=== PATIENT | female | born 1945 | race Hispanic/Latino ===

== ENCOUNTER 2016-04-25 09:13 | Outpatient (CLI) | payer MEDICARE ==
[2016-04-25 10:21] LABS: ALT (SGPT) 26 U/L (0-55); AST (SGOT) 26 U/L (5-34); Alkaline Phosphatase 117 U/L (40-150); Anion Gap 10 mmol/L (10-20); BUN (Urea Nitrogen) 13 mg/dL (9.8-20.1); Bilirubin, Total 0.6 mg/dL (0.2-1.2); Calc. Creatinine Clearance 0 mL/min (70-130); Calcium 9.6 mg/dL (7.8-10.44); Carbon Dioxide 27 mmol/L (23-31); Chloride 110 mmol/L (98-107); Estimated GFR-MDRD 66; Globulin 2.5 g/dL (2.4-3.5); LDL Cholesterol, Calculated 37 mg/dL
[2016-04-25 11:03] LABS: Hemoglobin A1c 7.5 % (4.0-6.0)
== END 2016-04-25 09:14 | disposition home or self-care (01) ==
LOC: BURLAB 09:13
PROVIDERS: ATTEND Internal Medicine
DX: E78.5 Hyperlipidemia, unspecified (principal); E03.9 Hypothyroidism, unspecified; E11.9 Type 2 diabetes mellitus without complications; E55.9 Vitamin D deficiency, unspecified
CPT/HCPCS: 36415; 80053; 80061; 82306; 83036; 84439; 84443

== ENCOUNTER 2016-08-09 09:02 | Outpatient (CLI) | payer MEDICARE ==
[2016-08-09 09:58] LABS: Bacteria/HPF Rare-Few HPF (None Seen); Bilirubin Negative (Negative); Blood, Urine Negative (Negative); Clarity Clear (Clear); Glucose, Urine (Dipstick) Negative (Negative); Leukocyte Trace (Negative); Nitrite Negative (Negative); Protein, Urine (Dipstick) Negative (Neg-Trace); RBC/HPF 0-3 HPF (0-3); Squamous Epithelial 0-3 HPF (0-3); Urobilinogen 0.2 mg/dL (0.2-1.0); WBC/HPF 0-3 HPF (0-3)
[2016-08-09 10:13] LABS: Hemoglobin A1c 7.1 % (4.0-6.0)
[2016-08-09 10:25] LABS: ALT (SGPT) 20 U/L (8-55); AST (SGOT) 17 U/L (5-34); Albumin 4.5 g/dL (3.4-4.8); Alkaline Phosphatase 133 U/L (40-150); Anion Gap 12 mmol/L (10-20); BUN (Urea Nitrogen) 17 mg/dL (9.8-20.1); Bilirubin, Total 0.5 mg/dL (0.2-1.2); Calc. Creatinine Clearance 0 mL/min (70-130); Calcium 9.7 mg/dL (7.8-10.44); Carbon Dioxide 26 mmol/L (23-31); Cardiac Risk 3.7 (Less than 4.5); Chloride 108 mmol/L (98-107); Cholesterol 152 mg/dl (< 200 Desired); Estimated GFR-MDRD 64; Globulin 2.8 g/dL (2.4-3.5); Glucose 161 mg/dL (83-110); HDL Cholesterol 41 mg/dL (>60 Neg Risk); LDL Cholesterol, Calculated 81 mg/dL; Potassium 4.6 mmol/L (3.5-5.1); Protein, Total 7.3 g/dL (6.0-8.3); Sodium 141 mmol/L (136-145); Triglycerides 149 mg/dL (Less than 150)
[2016-08-09 10:46] LABS: Free T4 (Free Thyroxine) 1.19 ng/dL (0.70-1.48); Thyroid Stimulating Hormone 0.2613 uIU/mL (0.35-4.94)
[2016-08-09 17:32] LABS: Creatinine, Urine 96.8 mg/dL (47-110); Microalbumin/Creat Ratio 10.3 mg/g (Less than 30)
[2016-08-09 18:19] LABS: Hep C IgG Ab Reflex HepC Qnt (NonReactive)
[2016-08-09 18:20] LABS: Hep C Index 1.43 S/CO (0-0.79)
== END 2016-08-09 09:03 | disposition home or self-care (01) ==
LOC: BURLAB 09:02
PROVIDERS: ATTEND Internal Medicine
DX: Z13.818 Encounter for screening for other digestive system disorders (principal); E78.5 Hyperlipidemia, unspecified; E11.9 Type 2 diabetes mellitus without complications
CPT/HCPCS: 36415; 80053; 80061; 81001; 82043; 83036; 84439; 84443; 86803; 87522

== ENCOUNTER 2022-02-11 11:12 | Outpatient (CLI) | payer MEDICARE | END 2022-02-11 11:13 | disposition home or self-care (01) | LOC: BURRAD 11:12 | PROVIDERS: ATTEND Neurological Surgery | DX: M47.26 Other spondylosis with radiculopathy, lumbar region (principal) | CPT/HCPCS: 72110 ==

== ENCOUNTER 2022-12-19 08:59 | Outpatient (CLI) | payer MEDICARE ==
[2022-12-19] MEDS ORDERED: Iopamidol 370 76% 100 ML VIAL ONE (17:04)
== END 2022-12-19 09:00 | disposition home or self-care (01) ==
LOC: BURCT 08:59
PROVIDERS: ATTEND Internal Medicine
DX: R93.422 Abnormal radiologic findings on diagnostic imaging of left kidney (principal); K76.0 Fatty (change of) liver, not elsewhere classified; K57.30 Diverticulosis of large intestine without perforation or abscess without bleeding
CPT/HCPCS: 74170; Q9967

== ENCOUNTER 2024-03-25 22:01 | Emergency (ER) | payer MEDICARE ==
[2024-03-25] MEDS ORDERED: methylPREDNISolone Sod Succ/PF 125 MG/2 ML VIAL ONE (22:17)
== END 2024-03-25 22:43 | disposition home or self-care (01) ==
LOC: BURERS 22:01
DX: M54.31 Sciatica, right side (principal); E11.9 Type 2 diabetes mellitus without complications
CPT/HCPCS: 96372; 99283; J2919

== ENCOUNTER 2024-03-29 10:23 | Emergency (ER) | payer MEDICARE | END 2024-03-29 11:52 | disposition home or self-care (01) | LOC: BURERS 10:23 | DX: M25.571 Pain in right ankle and joints of right foot (principal); E11.9 Type 2 diabetes mellitus without complications | CPT/HCPCS: 99283 ==